=== PATIENT | female | born 1980 | race Caucasian/White ===

== ENCOUNTER → 2017-02-19 | Outpatient (CLI) | payer BC ==
--- NOTE | 2017-02-20 08:29 | RAD ---
Indication chronic nontraumatic pain. AP oblique and lateral views of the right wrist were obtained. No bony abnormality is seen.
--- NOTE | 2017-02-20 08:38 | RAD ---
Indication chronic nontraumatic pain. An AP view of the right hand was obtained as well as additional AP and lateral imaging targeted to the thumb. No bony abnormality is seen. There is a tiny bony density at the interphalangeal joint of the thumb likely reflecting an accessory ossicle
== END | disposition home or self-care (01) ==
LOC: RAD 16:53
PROVIDERS: ATTEND Family Medicine
DX: M79.644 Pain in right finger(s) (principal); M79.641 Pain in right hand; M79.671 Pain in right foot
CPT/HCPCS: 73110; 73140

== ENCOUNTER 2017-03-15 08:48 | Day surgery (SDC) | payer BC ==
[~2017-03-15 08:48] MED LIST: ACET500T33 PO; FEXO180T81 PO; HYDROmorphone 2 MG/ML VIAL IV PRN; IBUP-1027 PO; IV RINGERS,LACTATED 1000ML 1,000 ML IV SCH; LIDOCAINE 1% 1 ML SYRINGE. ID PRN; MORPHINE SULFATE 2 MG/ML DISP.SYRIN. IV PRN; ONDANSETRON PF 4 MG/2 ML VIAL. IV PRN; PROCHLORPERAZINE 10 MG/2 ML VIAL. IV PRN; fentaNYL PF VIAL 100 MCG/2 ML VIAL IV PRN
[2017-03-15] MEDS ORDERED: BUPIVACAINE 0.5% 50 ML VIAL. ONE (10:31)
[2017-03-15] MEDS ORDERED: HYDR-965 PO (11:23)
--- NOTE | 2017-03-15 11:23 | DISCH ---
DISCHARGE INSTRUCTIONS Condition on Discharge Condition on Discharge: Stable Activity After Discharge Activity Instructions for Disc: Other, see below Other activity instructions: avoid hard grasp with right hand for 3 weeks Diet after Discharge Diet after Discharge: Regular Wound Incision Care Wound/Incision Care: Ice to area for comfort Other wound/incision instructi: May remove dressing in 3 days may then get wet in shower Contacting the DRPatrice after DC Call your doctor for: Concerns you may have Follow-Up Follow Up With: Shaun 10-14 days KHURRAM ALBARADO MD Mar 15, 2017 11:22
[2017-03-15 12:28] VITALS: BP 137/88
--- NOTE | 2017-03-15 18:32 | PDOC4 ---
Operative Note Operative Note Date of surgery: 03/15/2017 Preoperative diagnosis: Right trigger thumb Postoperative diagnosis: Same Procedure: Right trigger thumb release Surgeon Shaun Anesthesia local with monitored anesthesia care Estimated blood loss 5 mL Complications: None Operative indications: Patient is a 36-year-old female with pain and catching of her right thumb on extreme flexion. We had previously gone over in clinic treatment options including symptomatic treatment which was unsatisfactory due to her severe symptoms possibility of injection or more definitive treatment with surgical release. We covered the possibility of surgical complications including nerve or blood vessel damage infection possibility of continued pain among others all her questions were answered consent was obtained and she agrees to proceed with operative evaluation and treatment Operative text: Patient was identified procedure verified. Right upper extremity was prepped and draped in standard sterile fashion with a arm tourniquet that was not inflated. After timeout was performed patient procedure again identified and verified, the volar base of the thumb was infused with have percent Marcaine to obtain adequate local anesthetic block. After adequate time sensory block was obtained a transverse incision was made at the proximal thumb crease dissection carried out down to the flexor tendon and the A1 dong was divided entirely under direct visualization. She was noted to have a lump in the flexor tendon that did not otherwise compromised the function of the tendon triggering was completely eliminated bleeding points were controlled by bipolar electrocautery thorough irrigation carried out normal saline solution skin closure accomplished with nylon suture in vertical mattress fashion. Sterile dressings were applied patient was returned to recovery room in stable condition having tolerated procedure well KHURRAM ALBARADO MD Mar 15, 2017 18:32
== END 2017-03-15 12:46 | disposition home or self-care (01) ==
LOC: SURG 08:48
PROVIDERS: ATTEND Orthopaedic Surgery
DX: M65.311 Trigger thumb, right thumb (principal); F41.9 Anxiety disorder, unspecified; Z87.01 Personal history of pneumonia (recurrent); Z87.442 Personal history of urinary calculi; Z87.440 Personal history of urinary (tract) infections; Z72.89 Other problems related to lifestyle; Z86.14 Personal history of Methicillin resistant Staphylococcus aureus infection
CPT/HCPCS: 26055; J3490